=== PATIENT | female | born 1985 | race American Indian/Alaskan Native ===

== ENCOUNTER 2017-12-29 04:57 | Emergency (ER) | payer MEDICAID ==
[2017-12-29 05:22] VITALS: O2SAT 98
--- NOTE | 2017-12-29 05:29 | ED PDOC ---
HPI: General Adult Time Seen by Provider: 12/29/17 05:12 Chief Complaint (Nursing): Medical Clearance Chief Complaint (Provider): clearance for incarceration History Per: Patient Additional Complaint(s): 32 y/o female here in police custody for clearance for incarceration. Patient denies acute medical or psychiatric complaints. Past Medical History Reviewed: Historical Data, Nursing Documentation, Vital Signs Vital Signs: Last Vital Signs Temp 98 F 12/29/17 05:09 Pulse 70 12/29/17 05:09 Resp 14 12/29/17 05:09 BP 110/72 12/29/17 05:09 Pulse Ox 98 12/29/17 05:09 - Medical History PMH: Bipolar Disorder, Bronchitis - Family History Family History: States: No Known Family Hx - Social History Current smoker - smoking cessation education provided: Yes SMOKER/PACKS PER DAY:: 1 Alcohol: None Drugs: Denies - Allergies Allergies/Adverse Reactions: Allergies Allergy/AdvReac Type Severity Reaction Status Date / Time chocolate flavor Allergy RASH Verified 12/29/17 05:09 Review of Systems ROS Statement: Except As Marked, All Systems Reviewed And Found Negative Physical Exam - Reviewed Nursing Documentation Reviewed: Yes Vital Signs Reviewed: Yes - Physical Exam Appears: Positive for: Well, Non-toxic, No Acute Distress Head Exam: Positive for: ATRAUMATIC, NORMAL INSPECTION, NORMOCEPHALIC Skin: Positive for: Normal Color Eye Exam: Positive for: Normal appearance ENT: Positive for: Normal ENT Inspection Cardiovascular/Chest: Positive for: Regular Rate, Rhythm Respiratory: Positive for: Normal Breath Sounds Gastrointestinal/Abdominal: Positive for: Normal Exam Back: Positive for: Normal Inspection Extremity: Positive for: Normal ROM Neurologic/Psych: Positive for: Alert, Oriented (x3) - ECG O2 Sat by Pulse Oximetry: 98 - Progress ED Course And Treament: Patient evaluated by household worker and cleared for d/c as per Dr. Cobb Disposition - Clinical Impression Clinical Impression: Medical clearance for incarceration, Adjustment disorder - Patient ED Disposition Is Patient to be Admitted: No - Disposition Disposition: Discharged/Transfer to Law Enforcement Disposition Time: 05:47 Condition: GOOD Additional Instructions: Patient medically and psychiatrically cleared for incarceration Instructions: General (DC), Adjustment Disorder
[2017-12-29 06:41] VITALS: BP 122/78; PULSE 82; RESP 16; TEMP 98.4
== END 2017-12-29 06:00 | disposition home or self-care (01) ==
LOC: H.ER 04:57
DX: F43.20 Adjustment disorder, unspecified; F31.9 Bipolar disorder, unspecified; F17.210 Nicotine dependence, cigarettes, uncomplicated